=== PATIENT | female | born 2000 | race African-American/Black ===

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

== ENCOUNTER 2020-06-29 08:14 | Emergency (ER) | payer OTHER ==
[~2020-06-29] VITALS: Ht 157.5 cm; Wt 75.3 kg
[2020-06-29 08:18] VITALS: TEMP 98.7
[2020-06-29 10:00] VITALS: BP 121/69
== END 2020-06-29 10:00 | disposition home or self-care (01) ==
LOC: ED 08:14
DX: N39.0 Urinary tract infection, site not specified (principal); B37.3 Candidiasis of vulva and vagina; N76.0 Acute vaginitis
CPT/HCPCS: 81000; 99282

== ENCOUNTER 2020-09-21 16:45 | Emergency (ER) | payer OTHER ==
[~2020-09-21] VITALS: Ht 161.3 cm; Wt 67.6 kg
[2020-09-21 18:07] LABS: PLATELET COUNT 274 K/uL (152-353)
[2020-09-21 18:21] LABS: POTASSIUM 3.6 mmol/L (3.6-5.2)
[2020-09-21 19:55] VITALS: BP 133/69; TEMP 99
== END 2020-09-21 19:55 | disposition home or self-care (01) ==
LOC: ED 16:45
PROVIDERS: Hospitalist
DX: Z33.1 Pregnant state, incidental (principal); R11.2 Nausea with vomiting, unspecified
CPT/HCPCS: 80053; 80307; 81000; 81025; 82150; 83690; 85027; 96360; 96375; 99284; J2405

== ENCOUNTER 2020-11-23 16:00 | Emergency (ER) | payer OTHER | END 2020-11-23 16:09 | disposition home or self-care (01) | LOC: ED 16:00 | DX: Z20.828 Contact with and (suspected) exposure to other viral communicable diseases (principal) ==